=== PATIENT | male | born 1935 | race African-American/Black ===

== ENCOUNTER 2021-09-19 04:50 | Inpatient (IN) | payer OTHER ==
[2021-09-19] MEDS ORDERED: NA CHLORIDE 0.9% 1,000 ML ONE (06:04)
[2021-09-19] MEDS ORDERED: FAMOTIDINE 20 MG/2 ML VIAL IV ONE (06:04)
[2021-09-19] MEDS ORDERED: ONDANSETRON 4 MG/2 ML VIAL ONE ×3 (06:06→09:22)
[2021-09-19 06:33] LABS: Absolute Lymphocytes (CBC) 1.1 K/uL (0.7-4.9); Hematocrit 40.2 % (39.6-49.0); Lymphocytes % 14.3 % (15.3-44.8); MCV 89.9 fL (80-100); MPV 10.4 fL (7.6-11.3); RBC Red Blood Cell Count 4.48 M/uL (4.33-5.43)
[2021-09-19 07:01] LABS: Potassium 4.2 mmol/L (3.5-5.1); Troponin High Sensitivity 5.9 pg/mL (<58.9)
--- NOTE | 2021-09-19 07:22 | RAD REPORT ---
EXAM DESCRIPTION: CTChest Abdomen Pelvis W Cont - 09/19/2021 6:42 am CLINICAL HISTORY: abdominal pain COMPARISON: No comparisonsNo comparisons TECHNIQUE: CT of the chest, abdomen, and pelvis was performed with IV contrast. All CT scans are performed using dose optimization technique as appropriate and may include automated exposure control or mA/KV adjustment according to patient size. FINDINGS: Thorax: Chest Wall: No abnormal mass Lungs: Mild ground-glass opacities in the left lower lobe. Pleura: No effusions or pneumothorax. Bianca/Mediastinum: There is some fluid within the esophagus. Small hiatal hernia. Aorta/Pulmonary Arteries: Unremarkable Heart: Normal size. Abdomen/Pelvis: Liver: No acute abnormality or suspicious lesions. Biliary: Cholecystectomy. Extrahepatic biliary ductal dilatation is likely related to the postcholecy stectomy state. Stomach: No significant focal abnormality. Duodenum: No significant focal abnormality. Pancreas: No significant abnormality. Spleen: No significant abnormality. Adrenal: No suspicious lesions. Kidney/ureter: No hydronephrosis. No renal calculi. Too small to characterize and/or benign appearing renal lesions are noted. Retroperitoneum: No retroperitoneal adenopathy. Vascular: No aneurysm. Bowel: Small bowel obstruction secondary to a bowel containing right inguinal hernia. Peritoneum: Small bowel containing right inguinal hernia. The hernia sac also contains ascites. Bladder: Grossly unremarkable. Reproductive: No adnexal masses. Prostatomegaly. Bones: No acute fracture. Other: n/a IMPRESSION: 1. Mechanical bowel obstruction secondary to a small bowel containing right inguinal her briana. Recommend surgical consultation. 2. Very mild ground-glass opacities in left lower lobe could reflect aspiration pneumonitis.
--- NOTE | 2021-09-19 07:46 | RAD REPORT ---
EXAM DESCRIPTION: RAD - Chest Single View - 09/19/2021 6:33 am CLINICAL HISTORY: vomiting COMPARISON: No comparisons FINDINGS: Lines: None. Lungs: No evidence of edema or pneumonia. Pleural: No significant pleural effusions or pneumothorax. Cardiac: Enlarged cardiac silhouette. Bones: No acute fractures. Other: IMPRESSION: No acute cardiopulmonary disease.
[2021-09-19] MEDS ORDERED: ACETAMINOPHEN 500 MG TAB PO PRN (08:06)
[2021-09-19] MEDS ORDERED: HYDROMORPHONE HCL 0.5 MG/0.5 ML INJ IV PRN (08:06)
[2021-09-19] MEDS ORDERED: ONDANSETRON 4 MG/2 ML VIAL IV PRN (08:06)
--- NOTE | 2021-09-19 08:07 | EDPHYS ---
Physician Documentation [facility] Name: Anselmo Anderson Age: 85 yrs Sex: Male : 1935 Arrival Date: 09/19/2021 Time: 05:00 Bed 8 Private MD: ED Physician Robin Stevens HPI: 09/19 05:55 This 85 yrs old Black Male presents to ER via EMS with complaints of abdominal pain n/v.kdr 05:55 Last evening the patient began to have nausea vomiting and mid abdominal pain. Has kdr persisted and at times he has had difficulty remaining awake. This is not happened to him before he has no other known precipitating factors. The patient is otherwise in his usual state of health. Patient was brought to the ED. Does not appear to need emergent intervention at this time.. Onset: The symptoms/episode began/occurred last night. Severity of symptoms: At their worst the symptoms were moderate severe incapacitating in the emergency department the symptoms are unchanged have improved. The patient has not experienced similar symptoms in the past. The patient has not recently seen a physician. Historical: - Allergies: 06:47 No Known Allergies; as6 - Home Meds: 06:47 glimepiride 2 mg Oral tab 1 tab once daily [Active]; as6 - PMHx: 06:47 Diabetes mellitus; Hypertensive disorder; as6 - PSHx: 06:47 Cholecystectomy; as6 - Immunization history:: Client reports receiving the 2nd dose of the Covid vaccine. - Social history:: Smoking status: Patient denies any tobacco usage or history of. ROS: 05:55 Constitutional: Negative for fever, chills, and weight loss, Eyes: Negative for injury, kdr pain, redness, and discharge, ENT: Negative for injury, pain, and discharge, Neck: Negative for injury, pain, and swelling, Cardiovascular: Negative for chest pain, palpitations, and edema, Respiratory: Negative for shortness of breath, cough, wheezing, and pleuritic chest pain, Back: Negative for injury and pain, : Negative for injury, bleeding, discharge, and swelling, MS/Extremity: Negative for injury and deformity, Skin: Negative for injury, rash, and discoloration, Neuro: Negative for headache, weakness, numbness, tingling, and seizure activity. Psych: Negative for depression, anxiety, suicide ideation, homicidal ideation, and hallucinations, Allergy/Immunology: Negative for hives, rash, and allergies, Endocrine: Negative for neck swelling, polydipsia, polyuria, polyphagia, and marked weight changes, Hematologic/Lymphatic: Negative for swollen nodes, abnormal bleeding, and unusual bruising. 05:55 Abdomen/GI: Positive for nausea and vomiting, Negative for vomiting, diarrhea, constipation, abdominal cramps, abdominal distension, anorexia, black/tarry stool, rectal pain, rectal bleeding, bowel incontinence. Exam: 08:07 Constitutional: This is a well developed, well nourished patient who is awake, alert, kdr and in no acute distress. Head/Face: Normocephalic, atraumatic. Eyes: Pupils equal round and reactive to light, extra-ocular motions intact. Lids and lashes normal. Conjunctiva and sclera are non-icteric and not injected. Cornea within normal limits. Periorbital areas with no swelling, redness, or edema. Neck: Trachea midline, no thyromegaly or masses palpated, and no cervical lymphadenopathy. Supple, full range of motion without nuchal rigidity, or vertebral point tenderness. No Meningismus. Chest/axilla: Normal chest wall appearance and motion. Nontender with no deformity. No lesions are appreciated. Cardiovascular: Regular rate and rhythm with a normal S1 and S2. No gallops, murmurs, or rubs. Normal PMI, no JVD. No pulse deficits. Respiratory: Lungs have equal breath sounds bilaterally, clear to auscultation and percussion. No rales, rhonchi or wheezes noted. No increased work of breathing, no retractions or nasal flaring. Back: No spinal tenderness. No costovertebral tenderness. Full range of motion. Skin: Warm, dry with normal turgor. Normal color with no rashes, no lesions, and no evidence of cellulitis. MS/ Extremity: Pulses equal, no cyanosis. Neurovascular intact. Full, normal range of motion. Neuro: Awake and alert, GCS 15, oriented to person, place, time, and situation. Cranial nerves II-XII grossly intact. Motor strength 5/5 in all extremities. Sensory grossly intact. Cerebellar exam normal. Normal gait. Psych: Awake, alert, with orientation to person, place and time. Behavior, mood, and affect are within normal limits. 08:07 Abdomen/GI: Inspection: abdomen appears normal, bruising, Bowel sounds: active, diminished, in all quadrants, Palpation: soft, mild abdominal tenderness, in the umbilical area. Vital Signs: 05:00 BP 150 / 79; Pulse 80; Resp 15 S; Temp 97.5(O); Pulse Ox 99% on R/A; Weight 97.07 kg as6 (R); Height 5 ft. 11 in. (180.34 cm) (R); Pain 5/10; 06:18 BP 148 / 81; Pulse 87; Resp 18; Pulse Ox 95% on R/A; kd3 07:00 BP 183 / 95; Pulse 86; Resp 24; Pulse Ox 100% ; bp 08:00 BP 182 / 100; Pulse 85; Resp 17; Pulse Ox 96% ; Pain 5/10; jh6 09:00 BP 153 / 98; Pulse 98; Resp 18; Pulse Ox 94% ; Pain 5/10; jh6 10:00 BP 132 / 87; Pulse 86; Resp 17; Pulse Ox 96% ; Pain 0/10; jh6 05:00 Body Mass Index 29.85 (97.07 kg, 180.34 cm) as6 MDM: 08:07 Patient medically screened. kdr 08:07 Data reviewed: vital signs, nurses notes, lab test result(s), radiologic studies. kdr Counseling: I had a detailed discussion with the patient and/or guardian regarding: the historical points, exam findings, and any diagnostic results supporting the discharge/admit diagnosis, lab results, radiology results. 09/19 05:36 Order name: Basic Metabolic Panel; Complete Time: 07:46 kdr 09/19 05:36 Order name: CBC with Diff; Complete Time: 07:46 kdr 09/19 05:36 Order name: Troponin HS; Complete Time: 07:46 kdr 09/19 06:58 Order name: CREATININE WHOLE BLOOD; Complete Time: 07:46 EDMS 09/19 07:34 Order name: COVID 19 CPL (Document "Date of Onset" if Symptomatic) 6 09/19 08:15 Order name: CBC with Automated Diff EDMS 09/19 08:15 Order name: CBC with Automated Diff EDMS 09/19 08:15 Order name: Comprehensive Metabolic Panel EDMS 09/19 08:15 Order name: Comprehensive Metabolic Panel EDMS 09/19 08:15 Order name: Magnesium [facility] 09/19 08:15 Order name: Magnesium [facility] 09/19 08:15 Order name: Phosphorus [facility] 09/19 08:15 Order name: Phosphorus [facility] 09/19 09:51 Order name: SARS-COV-2 RT PCR [facility] 09/19 05:36 Order name: XRAY Chest (1 view); Complete Time: 07:55 kdr 09/19 05:36 Order name: EKG; Complete Time: 05:37 kdr 09/19 05:36 Order name: Cardiac monitoring; Complete Time: 05:45 kdr 09/19 05:36 Order name: EKG - Nurse/Tech; Complete Time: 06:16 kdr 09/19 05:36 Order name: IV Saline Lock; Complete Time: 05:45 kdr 09/19 05:36 Order name: CT Chest, Abdomen, Pelvis - W/Contrast; Complete Time: 07:46 kdr 09/19 08:15 Order name: CONS Physician Consult [facility] 09/19 08:15 Order name: NPO [facility] 09/19 08:15 Order name: Abdomen Acute Series [facility] 09/19 05:36 Order name: Labs collected and sent; Complete Time: 06:16 kdr 09/19 05:36 Order name: O2 Per Protocol; Complete Time: 05:45 kdr 09/19 05:36 Order name: O2 Sat Monitoring; Complete Time: 05:45 kdr 09/19 08:10 Order name: Nasogastric Tube; Complete Time: 10:31 kdr 09/19 08:10 Order name: NPO; Complete Time: 08:14 kdr Administered Medications: 06:16 Drug: Zofran (Ondansetron) 4 mg Route: IVP; Site: right antecubital; kd3 06:16 Drug: NS 0.9% 500 ml Route: IV; Rate: bolus; Site: right antecubital; kd3 09:29 Follow up: IV Status: Completed infusion; IV Intake: 500ml bp 06:16 Drug: Pepcid (famotidine) 20 mg Route: IVP; Site: right antecubital; kd3 09:15 Drug: Flagyl (metroNIDAZOLE) 500 mg Volume: 100 ml; Route: IVPB; Rate: 200 ml/hr; bp Infused Over: 30 mins; Site: right antecubital; 09:15 Drug: NS 0.9% 1000 ml Route: IV; Rate: 100 ml/hr; Site: right antecubital; bp 09:15 Drug: Zofran (Ondansetron) 4 mg Route: IVP; Site: right antecubital; bp 10:47 Drug: Cipro (ciprofloxacin) 400 mg Volume: 200 ml; Route: IVPB; Infused Over: 60 mins; jh6 Site: right antecubital; Disposition Summary: 09/19/21 08:07 Hospitalization Ordered Hospitalization Status: Inpatient Admission kdr Provider: Adolfo Anand Location: Telemetry/MedSur (Inpatient) kdr Condition: Fair kdr Problem: new kdr Symptoms: have improved kdr Bed/Room Type: Standard kdr Room Assignment: 210(09/19/21 10:18) iw Diagnosis - Abdominal pain, Generalized kdr - Bowel Obstruction kdr Forms: - Medication Reconciliation Form kdr - SBAR form kdr Signatures: Dispatcher [employer] EDMS Robin Stevens MD MD kdr Lydia Carr RN RN iw Renzo Kimble RN RN bp Piyush Lara RN RN as6 Heidi Victoria RN RN kd3 Gabriella Guzman RN RN jh6 Corrections: (The following items were deleted from the chart) 10:18 08:07 kdr iw
--- NOTE | 2021-09-19 08:07 | ER ---
Nurse's Notes [facility] Name: Anselmo Anderson Age: 85 yrs Sex: Male : 1935 Arrival Date: 09/19/2021 Time: 05:00 Bed 8 Private MD: Diagnosis: Abdominal pain, Generalized;Bowel Obstruction Presentation: 09/19 05:00 Chief complaint: EMS states: called out for n/v. pt reports getting his second COVID as6 vaccine on Thursday and since he has been nauseous. Coronavirus screen: At this time, the client does not indicate any symptoms associated with coronavirus-19. Ebola Screen: No symptoms or risks identified at this time. Initial Sepsis Screen: Does the patient meet any 2 criteria? No. Patient's initial sepsis screen is negative. Does the patient have a suspected source of infection? No. Patient's initial sepsis screen is negative. Risk Assessment: Do you want to hurt yourself or someone else? Patient reports no desire to harm self or others. Onset of symptoms was September 16, 2021. 05:00 Method Of Arrival: [facility] as6 05:00 Acuity: [facility] 3 as6 Historical: - Allergies: 06:47 No Known Allergies; as6 - Home Meds: 06:47 glimepiride 2 mg Oral tab 1 tab once daily [Active]; as6 - PMHx: 06:47 Diabetes mellitus; Hypertensive disorder; as6 - PSHx: 06:47 Cholecystectomy; as6 - Immunization history:: Client reports receiving the 2nd dose of the Covid vaccine. - Social history:: Smoking status: Patient denies any tobacco usage or history of. Screenin:23 Abuse screen: Denies threats or abuse. Denies injuries from another. Nutritional as6 screening: No deficits noted. Tuberculosis screening: No symptoms or risk factors identified. Fall Risk None identified. Assessment: 06:18 General: Appears uncomfortable, Behavior is calm, cooperative. Pain: Complains of pain kd3 in abdomen. Respiratory: Airway is patent Trachea midline Respiratory effort is even, unlabored. 06:18 GI: Pt is actively vomiting undigested food. kd3 06:20 Reassessment: Patient and/or family updated on plan of care and expected duration. Pain kd3 level reassessed. Patient is alert, oriented x 3, equal unlabored respirations, skin warm/dry/pink. 07:00 Reassessment: RECD REPORT FROM HEIDI GARCIA. 85YO BM P/W N/V AFTER SECOND COVID VAXX. bp 07:57 Reassessment: Patient and/or family updated on plan of care and expected duration. Pain jh6 level reassessed. Patient is alert, oriented x 3, equal unlabored respirations, skin warm/dry/pink. Pain: Complains of pain in umbilical area, right upper quadrant and left upper quadrant Pain currently is 4 out of 10 on a pain scale. GI: Abdomen is flat, obese, Bowel sounds present X 4 quads. Abd is soft Abd is non tender X 4 quads. 09:00 Reassessment: Patient and/or family updated on plan of care and expected duration. Pain jh6 level reassessed. pt vomited x 1 abd states that he is having abd pain. Vital Signs: 05:00 BP 150 / 79; Pulse 80; Resp 15 S; Temp 97.5(O); Pulse Ox 99% on R/A; Weight 97.07 kg as6 (R); Height 5 ft. 11 in. (180.34 cm) (R); Pain 5/10; 06:18 BP 148 / 81; Pulse 87; Resp 18; Pulse Ox 95% on R/A; kd3 07:00 BP 183 / 95; Pulse 86; Resp 24; Pulse Ox 100% ; bp 08:00 BP 182 / 100; Pulse 85; Resp 17; Pulse Ox 96% ; Pain 5/10; jh6 09:00 BP 153 / 98; Pulse 98; Resp 18; Pulse Ox 94% ; Pain 5/10; jh6 10:00 BP 132 / 87; Pulse 86; Resp 17; Pulse Ox 96% ; Pain 0/10; jh6 05:00 Body Mass Index 29.85 (97.07 kg, 180.34 cm) as6 ED Course: 05:00 Patient arrived in ED. as6 05:01 Piyush Lara, RAD[facility] is Primary Nurse. as6 05:22 Robin Stevens MD is Attending Physician. kdr 05:23 Triage completed. as6 05:23 Arm band placed on. as6 05:23 Bed in low position. Call light in reach. Side rails up X2. Client placed on continuous as6 cardiac and pulse oximetry monitoring. NIBP monitoring applied. 06:35 XRAY Chest (1 view) In Process Unspecified. EDMS 06:44 CT Chest, Abdomen, Pelvis - W/Contrast In Process Unspecified. EDMS 07:25 Primary Nurse role handed off by Piyush Lara, RAD[facility] eb 07:30 Renzo Kimble, RAD[facility] is Primary Nurse. bp 08:06 Adolfo Anand MD is Hospitalizing Provider. kdr 10:31 NGT: inserted 16 Fr. via left nare. verified placement of air over stomach, verified jh6 return of gastric contents, to intermittent suction. Patient tolerated well. 12:18 Patient admitted, IV remains in place. iw 12:18 No provider procedures requiring assistance completed. iw Administered Medications: 06:16 Drug: Zofran (Ondansetron) 4 mg Route: IVP; Site: right antecubital; kd3 06:16 Drug: NS 0.9% 500 ml Route: IV; Rate: bolus; Site: right antecubital; kd3 09:29 Follow up: IV Status: Completed infusion; IV Intake: 500ml bp 06:16 Drug: Pepcid (famotidine) 20 mg Route: IVP; Site: right antecubital; kd3 09:15 Drug: Flagyl (metroNIDAZOLE) 500 mg Volume: 100 ml; Route: IVPB; Rate: 200 ml/hr; bp Infused Over: 30 mins; Site: right antecubital; 09:15 Drug: NS 0.9% 1000 ml Route: IV; Rate: 100 ml/hr; Site: right antecubital; bp 09:15 Drug: Zofran (Ondansetron) 4 mg Route: IVP; Site: right antecubital; bp 10:47 Drug: Cipro (ciprofloxacin) 400 mg Volume: 200 ml; Route: IVPB; Infused Over: 60 mins; jh6 Site: right antecubital; Medication: 12:19 VIS not applicable for this client. iw Intake: 09:29 IV: 500ml; Total: 500ml. bp Outcome: 08:07 Decision to Hospitalize by Provider. kdr 12:18 Admitted to Med/surg accompanied by tech, via stretcher. iw 12:18 Condition: good 12:18 Discharge instructions given to patient, Instructed on the need for admit. 12:19 Patient left the ED. iw Signatures: Dispatcher [facility] Robin Stevens MD MD kdr Williams, Irene RN RN iw Renzo Kimble RN RN Rosio Morales Ashby, RN RN as6 Heidi Victoria RN RN kd3 Gabriella Guzman RN RN jh6 Corrections: (The following items were deleted from the chart) 10:35 10:32 Reassessment: Patient and/or family updated on plan of care and expected jh6 duration. Pain level reassessed. 6
[2021-09-19] MEDS ORDERED: CIPROFLOXACIN 400mg IV 400 MG/200 ML BAG IV ONE (08:26)
[2021-09-19] MEDS: ENOXAPARIN 40 MG/0.4 ML SQ SCH (09:00)
[2021-09-19] MEDS: NA CHLORIDE 0.9% 1,000 ML IV SCH ×3 (09:00→22:20)
[2021-09-19] MEDS ORDERED: HYDROMORPHONE HCL 0.5 MG/0.5 ML INJ ONE (09:22)
--- NOTE | 2021-09-19 09:32 | RAD REPORT ---
EXAM DESCRIPTION: RAD - Abdomen Acute Series - 09/19/2021 9:02 am CLINICAL HISTORY: SBO COMPARISON: Chest Single View dated 09/19/2021; Chest Abdomen Pelvis W Cont dated 09/19/2021 FINDINGS/IMPRESSION: Multiple air-fluid levels are present within the central abdomen left upper scottie drant consistent with the known small bowel obstruction. Surgical clips in right upper quadrant. The lungs are clear.
[2021-09-19] MEDS ORDERED: LIDOCAINE VISCOUS 2% SOLN 15 ML UDC ONE (09:53)
--- NOTE | 2021-09-19 10:35 | P.CNS ---
Date of Consult: 09/19/21 Reason for consult: Small bowel obstruction History of present illness: Patient is a 85-year-old gentleman with comes in with acute onset right-sided abdominal pain associated with nausea and vomiting. Patient states that he has not had a bowel movement recently and has not passed gas. No blood in his stool, dysuria or hematuria. Patient denies sore throat, runny nose, cough, headaches, dizziness, chest pain, fever or chills. Patient had a right inguinal hernia with small bowel in it which was reduced by Dr. Rodriguez. Review of systems: Otherwise unremarkable Past medical history: Hypertension, diabetes type 2 Past surgical history: Cholecystectomy Allergies: None Social history: Patient does not smoke or drink alcohol Family history: Contributory Vital signs: Stable, afebrile Physical exam: Alert oriented x4 Head and neck exam: No masses Chest: Clear Heart: S1-S2 Abdomen: Soft, nondistended, nontender, positive bowel sounds Extremity: Neurovascularly intact, nontender Neuro: Nonfocal : Right inguinal hernia no bowel in it at this time Diagnostic data: Laboratory data and CAT scan reviewedpatient has a right inguinal hernia with small bowel in it causing the obstruction, patient may also have aspiration pneumonitis on CT of the chest Assessment: Right inguinal hernia incarcerated with small bowel now reduced. Patient may have aspiration pneumonitis. Plan/recommendation: Admit, n.p.o., IV fluids, NG tube if the patient vomits and IV antibiotics. Patient should be treated for the pneumonitis first and if obstruction system improves with the reduction of the hernia then diet can be advanced and if tolerated patient can be discharged home. Patient can follow-up with me as an outpatient and we will schedule his hernia surgery at that time. Plan of care discussed in detail with Dr. Anand. CC:
[2021-09-19 12:49] VITALS: O2SAT 96
[2021-09-19] MEDS: METRONIDAZOLE 500mg IVPB 500 MG/100 ML BAG IV SCH ×2 (14:12→16:59)
--- NOTE | 2021-09-19 15:58 | P.HP ---
Certification for Inpatient Patient admitted to: Inpatient With expected LOS: >2 Midnights Patient will require the following post-hospital care: None Practitioner: I am a practitioner with admitting privileges, knowledge of patient current condition, hospital course, and medical plan of care. Services: Services provided to patient in accordance with Admission requirements found in Title 42 Section 412.3 of the Code of Federal Regulations Patient History Date of Service: 09/19/21 Reason for admission: Abdominal pain; intractable nausea and vomiting History of Present Illness: Patient is an 85-year-old gentleman who came to the hospital with abdominal pain along with intractable nausea vomiting. Patient was found to have a strangulated inguinal hernia on the right. This was reduced by the emergency room physician. Patient's pain improved. Patient will be admitted to the hospital for closer evaluation. There is a questionable left lower lobe pneumonia which we will monitor closely. We will repeat chest x-ray and check a procalcitonin level. Otherwise, patient with no new complaints. He states he is feeling better. He did have an episode of nausea and vomiting a little while ago but overall is doing much better. He will be admitted for further evaluation. Allergies No Known Allergies Allergy (Unverified 09/19/21 08:26) - Past Medical/Surgical History Past Medical History: Patient denies medical history Past Surgical History: Patient denies surgical history - Family History Father Family History: Reviewed- Non-Contributory - Social History Smoking Status: Former smoker Alcohol use: No CD- Drugs: No Review of Systems 10-point ROS is otherwise unremarkable Physical Examination - Vital Signs Temperature: 98.5 F Blood Pressure: 137/85 Pulse: 90 Respirations: 18 Pulse Ox (%): 96 - Physical Exam General: Alert, In no apparent distress, Oriented x3 HEENT: Atraumatic, PERRLA, Mucous membr. moist/pink, EOMI, Sclerae nonicteric Neck: Supple, 2+ carotid pulse no bruit, No LAD, Without JVD or thyroid abnor mality Respiratory: Clear to auscultation bilaterally, Normal air movement Cardiovascular: Regular rate/rhythm, Normal S1 S2, No murmurs Gastrointestinal: Normal bowel sounds, Soft and benign, Non-distended, No tenderness Musculoskeletal: No clubbing, No swelling, No tenderness Integumentary: No rashes Neurological: Normal gait, Normal speech, Normal strength at 5/5 x4 extr, Sensation intact, Cranial nerves 3-12 intact Lymphatics: No axilla or inguinal lymphadenopathy - Studies Laboratory Data (last 24 hrs) 09/19/21 05:36: WBC 7.5, Hgb 13.5 L, Hct 40.2, Plt Count 150 L 09/19/21 05:36: Sodium 136, Potassium 4.2, BUN 20 H, Creatinine 1.16, Glucose 159 H Assessment & Plan - Problems (Diagnosis) (1) Incarcerated right inguinal hernia Current Visit: Yes Status: Acute (2) Small bowel obstruction Current Visit: Yes Status: Acute (3) Left lower lobe pneumonia Current Visit: Yes Status: Acute - Plan Plan: 1. IV fluids 2. IV antibiotics 3. Pain control 4. Reduce inguinal hernia has been completed and patient feeling better; continue with NG tube 5. General surgery consultation 6. GI DVT prophylaxis Discharge Plan: Home Plan to discharge in: Greater than 2 days - Advance Directives Does patient have a Living Will: No Does patient have a Durable POA for Healthcare: No - Code Status/Comfort Care Code Status Assessed: Yes Code Status: Full Code Critical Care: No Time Spent Managing PTS Care (In Minutes): 45
[2021-09-19 16:04] VITALS: BMI 29.8
[2021-09-19] MEDS: Levofloxacin500mg IV 500 MG/100 ML BAG IV SCH (16:59)
[2021-09-20] MEDS: METRONIDAZOLE 500mg IVPB 500 MG/100 ML BAG IV SCH ×4 (00:12→17:32)
[2021-09-20] MEDS: NA CHLORIDE 0.9% 1,000 ML IV SCH ×3 (04:10→18:20)
[2021-09-20 06:13] LABS: Absolute Lymphocytes (CBC) 1.3 K/uL (0.7-4.9); Hematocrit 35.9 % (39.6-49.0); Lymphocytes % 19.5 % (15.3-44.8); MCV 90.2 fL (80-100); MPV 11.1 fL (7.6-11.3); RBC Red Blood Cell Count 3.98 M/uL (4.33-5.43)
[2021-09-20 06:42] LABS: Albumin 3.1 g/dL (3.4-5.0); Bilirubin Total 0.7 mg/dL (0.2-1.0); Phosphorus 2.8 mg/dL (2.5-4.9); Protein, Total 6.4 g/dL (6.4-8.2)
[2021-09-20 06:43] LABS: Magnesium 2.4 mg/dL (1.8-2.4); Potassium 4.4 mmol/L (3.5-5.1)
--- NOTE | 2021-09-20 07:21 | RAD REPORT ---
EXAM DESCRIPTION: RAD - Chest Single View - 09/20/2021 6:47 am CLINICAL HISTORY: pneumonia COMPARISON: Abdomen Acute Series dated 09/19/2021; Chest Single View dated 09/19/2021; Chest Abdomen P carmelita W Cont dated 09/19/2021 FINDINGS: Lines: None. Lungs: No evidence of edema or pneumonia. Pleural: No significant pleural effusions or pneumothorax. Cardiac: The heart size is within normal limits. Bones: No acute fractures. Other: Enteric tube terminates overlying the stomach. IMPRESSION: No acute cardiopulmonary disease.
--- NOTE | 2021-09-20 07:21 | RAD REPORT ---
EXAM DESCRIPTION: RAD - Abdomen W Erect - 09/20/2021 6:47 am CLINICAL HISTORY: F/U SBO COMPARISON: Chest Abdomen Pelvis W Cont dated 09/19/2021; Abdomen Acute Series dated 09/19/2021 FINDINGS: Nonobstructive bowel gas pattern. No air-fluid levels. No acute osseous abnormality.Visual ized lungs are unremarkable.No abnormal calcifications. NG tube terminates in the proximal stomach. S urgical clips in the right upper quadrant. IMPRESSION: Nonobstructive bowel gas pattern. Findings have improved since 09/19/2021.
[2021-09-20] MEDS: ENOXAPARIN 40 MG/0.4 ML SQ SCH (08:16)
[2021-09-20 08:37] LABS: White Blood Cell Scan OK (OK)
[2021-09-20 08:38] LABS: Blood Morphology Comment NOTED (NOT SEEN); Hypochromasia 1+; Platelet Estimate DECR
--- NOTE | 2021-09-20 08:52 | P.PN ---
Date of Service: 09/20/21 Subjective: Patient is awake and alert. Patient denies nausea or vomiting. Patient is passing gas. Patient is complaining of a cough. Patient denies any sputum. Objective: Vital signs, stable afebrile. Abdominal x-ray shows marked improvement in the obstruction pattern. Laboratory data essentially within normal limits. Abdomen: Soft, nondistended, positive bowel sound, nontender : No evidence of incarcerated hernia at this time. Assessment: 85-year-old gentleman with recent episode of incarcerated right inguinal hernia with small bowel obstruction and aspiration pneumonitis. Plan: After the hernia was reduced, patient has not had any GI symptoms. Therefore, we will begin clear liquids and clamp his NG tube. If the residuals are less than 50 cc, NG tube can be removed and diet can be advanced. Incentive spirometry should be used and possibly respiratory treatments as needed. Antibiotics as ordered. Patient can follow-up with me in 2 weeks. We will evaluate the feasibility of repairing the right inguinal hernia at that time. From surgical standpoint, patient can be discharged when he is tolerating regu lar diet. CC:
--- NOTE | 2021-09-20 09:53 | EKG ---
Test Date: 2021-09-19 Test Time: 06:14:57 Online [employer] Specialist: CHARANJIT MEASUREMENT RESULTS: Intervals: Rate: 80 DE: 162 QRSD: 80 QT: 372 QTc: 429 [place]: P: 38 DE: 162 QRS: 54 T: 22 INTERPRETIVE STATEMENTS: Normal sinus rhythm Normal ECG No previous ECG available for comparison Electronically Signed On 09-20-21 09:48:55 CDT by Billy Thompson
[2021-09-20] MEDS: Levofloxacin500mg IV 500 MG/100 ML BAG IV SCH (16:05)
[2021-09-21] MEDS: METRONIDAZOLE 500mg IVPB 500 MG/100 ML BAG IV SCH ×2 (00:23→05:27)
[2021-09-21] MEDS: NA CHLORIDE 0.9% 1,000 ML IV SCH ×2 (01:00→04:44)
[2021-09-21] MEDS ORDERED: BISMUTH SUBSALICYL 262MG/15ML-240 ML BTL PO PRN (04:50)
[2021-09-21] MEDS ORDERED: MAGNES/ALUMIN/SIMET 30ML UCUP PO PRN (05:02)
[2021-09-21 08:27] VITALS: BP 134/66; TEMP 97.8
[2021-09-21] MEDS: ENOXAPARIN 40 MG/0.4 ML SQ SCH (09:00)
--- NOTE | 2021-09-22 00:20 | P.PN ---
Subjective Date of Service: 09/20/21 symptoms have resolved. Patient clinically doing much better. Review of Systems 10-point ROS is otherwise unremarkable Physical Examination - Vital Signs Temperature: 97.8 F Blood Pressure: 134/66 Pulse: 66 Respirations: 16 Pulse Ox (%): 96 - Physical Exam General: Alert, In no apparent distress HEENT: Atraumatic, PERRLA, EOMI Neck: Supple, JVD not distended Respiratory: Clear to auscultation bilaterally, Normal air movement Cardiovascular: Regular rate/rhythm, Normal S1 S2 Gastrointestinal: Normal bowel sounds, No tenderness Musculoskeletal: No tenderness Integumentary: No rashes Neurological: Normal speech, Normal tone, Normal affect Lymphatics: No axilla or inguinal lymphadenopathy - Studies Medications List Reviewed: Yes Assessment & Plan - Problems (Diagnosis) (1) Incarcerated right inguinal hernia Status: Acute (2) Small bowel obstruction Status: Acute (3) Left lower lobe pneumonia Status: Acute - Plan Plan: 1. IV fluids 2. IV antibiotics 3. Pain control 4. Reduce inguinal hernia has been completed and patient feeling better; continue with NG tube 5. General surgery consultation 6. GI DVT prophylaxis - Advance Directives Does patient have a Living Will: No Does patient have a Durable POA for Healthcare: No - Code Status/Comfort Care Code Status: Full Code
--- NOTE | 2021-09-22 00:21 | P.DS ---
Discharge Date: 09/21/21 Disposition: ROUTINE DISCHARGE Discharge Condition: GOOD Reason for Admission: Abdominal pain; intractable nausea and vomiting - Problems (1) Incarcerated right inguinal hernia Status: Acute (2) Small bowel obstruction Status: Acute (3) Left lower lobe pneumonia Status: Acute Brief History of Present Illness: Patient is an 85-year-old gentleman who came to the hospital with abdominal pain along with intractable nausea vomiting. Patient was found to have a strangulated inguinal hernia on the right. This was reduced by the emergency room physician. Patient's pain improved. Patient will be admitted to the hospital for closer evaluation. There is a questionable left lower lobe pneumonia which we will monitor closely. We will repeat chest x-ray and check a procalcitonin level. Otherwise, patient with no new complaints. He states he is feeling better. He did have an episode of nausea and vomiting a little while ago but overall is doing much better. He will be admitted for further evaluation. Hospital Course: Patient has done well during hospitalization. Patient is clinically doing much better. Patient will continue with antibiotic therapy. Patient is stable for discharge home. Vital Signs/Physical Exam: Temp Pulse Resp BP Pulse Ox 97.8 F 66 16 134/66 96 09/22/21 00:19 09/22/21 00:19 09/22/21 00:19 09/22/21 00:19 09/22/21 00:19 General: Alert, In no apparent distress, Oriented x3 Laboratory Data at Discharge: WBC 6.9 K/uL (4.3-10.9) 09/20/21 05:24 Hgb 11.9 g/dL (13.6-17.9) L 09/20/21 05:24 Hct 35.9 % (39.6-49.0) L 09/20/21 05:24 Plt Count 122 K/uL (152-406) L 09/20/21 05:24 Sodium 139 mmol/L (136-145) 09/20/21 05:24 Potassium 4.4 mmol/L (3.5-5.1) 09/20/21 05:24 BUN 18 mg/dL (7-18) 09/20/21 05:24 Creatinine 0.93 mg/dL (0.55-1.3) 09/20/21 05:24 Glucose 100 mg/dL (74-106) 09/20/21 05:24 Phosphorus 2.8 mg/dL (2.5-4.9) 09/20/21 05:24 Magnesium Cancelled 09/20/21 06:00 Total Bilirubin 0.7 mg/dL (0.2-1.0) 09/20/21 05:24 AST 22 U/L (15-37) 09/20/21 05:24 ALT 13 U/L (12-78) 09/20/21 05:24 Alkaline Phosphatase 50 U/L (45-117) 09/20/21 05:24 Home Medications: Benzonatate [Tessalon Perle] 200 mg PO TID #20 cap 09/21/21 levoFLOXacin [Levaquin] 500 mg PO DAILY #7 tab 09/21/21 metroNIDAZOLE [Flagyl] 500 mg PO Q8H #20 tablet 09/21/21 predniSONE [Prednisone*] 20 mg PO DAILY #5 tab 09/21/21 New Medications: metroNIDAZOLE [Flagyl] 500 mg PO Q8H #20 tablet levoFLOXacin [Levaquin] 500 mg PO DAILY #7 tab predniSONE [Prednisone*] 20 mg PO DAILY #5 tab Benzonatate [Tessalon Perle] 200 mg PO TID #20 cap Physician Discharge Instructions: OK TO DC IV AND DC HOME FOLLOW-UP WITH PRIMARY CARE PROVIDER IN 1-2 WEEKS FOLLOW-UP WITH Surgery IN 1-2 WEEKS RETURN TO THE ER IF symptoms worsen CALL DR. BRIGGS AT [phone] IF ANY QUESTIONS REGARDING HOSPITAL STAY. PLEASE CALL THE FLOOR AT [phone] IF ANY MEDICATION OR NURSING QUESTIONS. Diet: Regular Activity: Fall precautions Followup: NONE,NONE [Primary Care Provider] - Time spent managing pt's care (in minutes): 35
== END 2021-09-21 10:41 | disposition home or self-care (01) | DRG 393 ==
LOC: ER 04:50 → ERHOLD 08:07 → 2ND 12:01
PROVIDERS: ADMIT Hospitalist; ATTEND Hospitalist
DX: K40.30 Unilateral inguinal hernia, with obstruction, without gangrene, not specified as recurrent (principal); J18.9 Pneumonia, unspecified organism; I10 Essential (primary) hypertension; E11.9 Type 2 diabetes mellitus without complications; Z87.891 Personal history of nicotine dependence; Z20.822 Contact with and (suspected) exposure to COVID-19
CPT/HCPCS: 36415; 71045; 71260; 74019; 74022; 74177; 80048; 80053; 82565; 82947; 83735; 84100; 84145; 84484; 85025; 93005; 94010; 96361; 96374; 96375; 99285; J0744; J1170; J1650; J2405; J3490; J7030; Q9967; U0003